=== PATIENT | female | born 1985 | race Hispanic/Latino ===

== ENCOUNTER 2017-05-14 23:50 | Emergency (ER) | payer SELFPAY ==
[2017-05-15] MEDS ORDERED: Ibuprofen 800 MG TAB ONE (00:20)
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
== END 2017-05-15 02:01 | disposition home or self-care (01) ==
LOC: ERS 23:50
DX: S00.83XA Contusion of other part of head, initial encounter (principal); S00.03XA Contusion of scalp, initial encounter; Y04.2XXA Assault by strike against or bumped into by another person, initial encounter
CPT/HCPCS: 70450; 70486

== ENCOUNTER 2017-08-03 22:01 | Emergency (ER) | payer SELFPAY ==
[~2017-08-03 22:01] MED LIST: ISOVUE-370 76%-LOCM 1 ML ONE
[2017-08-03 22:25] LABS: Pregnancy Test - Urine (BHCG) Negative (Negative); Pregu Control Background? CLEAR/WHITE (CLR/WHITE); Pregu Control Bar Appear? YES (CONTROL BAR)
[2017-08-03 22:26] LABS: Bilirubin Negative (Negative); Blood, Urine Small (Negative); Clarity CLEAR (Clear); Glucose, Urine (Dipstick) Negative (Negative); Leukocyte Negative (Negative); Nitrite Negative (Negative); Protein, Urine (Dipstick) Negative (Neg-Trace); Specific Gravity 1.026 (1.002-1.036); Specific Gravity, Urine 1.026 (1.002-1.036); Urobilinogen 0.2 mg/dL (0.2-1.0)
[2017-08-03 22:27] LABS: Bacteria/HPF None Seen HPF (None Seen); Hyaline Casts/LPF 0-3 HYALINE CAST LPF (0-3 Hyaline); Pathc Cast-AUWi Flag 0.58 (0-2.49); RBC/HPF 0-3 HPF (0-3); Squamous Epithelial 0-3 HPF (0-3); WBC/HPF 0-3 HPF (0-3)
[2017-08-04] MEDS ORDERED: Ketorolac Tromethamine 30 MG/ML VIAL ONE (00:14)
[2017-08-04 00:17] LABS: #Basophils 0.1 thou/uL (0.0-0.2); #Eosinphils 0.2 thou/uL (0.0-0.7); #Lymphocytes 2.5 thou/uL (1.20-3.40); #Neutrophils 10.4 thou/uL (1.40-6.50); %Basophils 0.5 % (0.0-1.0); %Eosinophils 1.2 % (0.0-10.0); %Lymphocytes 17.4 % (21.0-51.0); %Monocytes 6.9 % (0.0-10.0); %Neutrophils 73.9 % (42.0-75.0); Hemoglobin 10.9 g/dL (12.0-16.0); Mean Corpuscular HGB CONC 31.1 g/dL (32.0-36.0); Mean Corpuscular Hemoglobin 22.1 pg (27.0-31.0); Mean Corpuscular Volume 71.2 fl (81.0-99.0); Mean Platelet Volume 8.6 fL (7.4-10.4); Platelet Count 399 thou/uL (130-400); RBC Distribution Width 18.1 % (11.5-14.5); Red Blood Cell (RBC) Count 4.94 mill/uL (4.20-5.40); White Blood Cell (WBC) Count 14.1 thou/uL (4.8-10.8)
[2017-08-04 00:23] LABS: ALT (SGPT) 14 U/L (8-55); AST (SGOT) 19 U/L (5-34); Albumin 4.6 g/dL (3.5-5.0); Alkaline Phosphatase 95 U/L (40-150); Anion Gap 12 mmol/L (10-20); BUN (Urea Nitrogen) 14 mg/dL (7.0-18.7); Bilirubin, Total 0.3 mg/dL (0.2-1.2); Calc. Creatinine Clearance 0 mL/min (70-130); Calcium 10.1 mg/dL (7.8-10.44); Carbon Dioxide 27 mmol/L (22-29); Chloride 103 mmol/L (98-107); Estimated GFR-MDRD Greater than 90; Glucose 97 mg/dL (70-105); Lipase 37 U/L (8-78); Potassium 3.8 mmol/L (3.5-5.1); Protein, Total 8.6 g/dL (6.0-8.3); Sodium 138 mmol/L (136-145)
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
--- NOTE | 2017-08-04 17:16 | CT ---
sPRELIMINARY REPORT/[facility]/EMERGENCY AFTER HOURS PROCEDURE: EXAM: CT Abdomen and Pelvis With Intravenous Contrast EXAM DATE/TIME: Exam ordered 08/03/2017 11:54 PM CLINICAL HISTORY: 31 years old, female; Pain; Abdominal pain; Localized; Right lower quadrant (rlq); Prior surgery; Pat ient HX: Pt complains of rlq pain and n/v; Surgical history of tubal ligation, uterine biopsy TECHNIQUE: Axial computed tomography images of the abdomen and pelvis with intravenous contrast. Coronal reformatted images were created and reviewed. COMPARISON: No relevant prior studies available. FINDINGS: Lower thorax: No acute findings. ABDOMEN: Liver: Unremarkable. No mass. Gallbladder and bile ducts: Cholelithiasis. No cholecystitis or biliary ductal dilatation. Pancreas: Unremarkable. No mass. No ductal dilation. Spleen: Unremarkable. No splenomegaly. Adrenals: Unremarkable. No mass. Kidneys and ureters: Unremarkable. No solid mass. No hydronephrosis. Stomach and bowel: Unremarkable. No obstruction. No mucosal thickening. Appendix: Normal appendix. PELVIS: Bladder: Unremarkable. No mass. Reproductive: 1.9 cm dominant follicle/cyst the left ovary. ABDOMEN and PELVIS: Intraperitoneal space: Unremarkable. No free air. No significant fluid collection. Bones/joints: No acute fracture. No dislocation. Soft tissues: Unremarkable. Vasculature: Unremarkable. No abdominal aortic aneurysm. Lymph nodes: Unremarkable. No enlarged lymph nodes. IMPRESSION: 1.9 cm dominant follicle/cyst the left ovary. Thank you for allowing us to participate in the care of your patient. Dictated and Authenticated by: Misha Yung MD 08/04/2017 12:39 AM Central Time ([place] & [place]) FINAL REPORT CT APPENDIX PROTOCOL: INDICATION: Right lower quadrant abdominal pain with a surgical history of uterine biopsy and tubal ligation. COMPARISON: Prior exam dated 05/20/15. FINDINGS: There are follicular cysts within both adnexa, and I Agree with the preliminary report provided. The dominant follicle is within the left ovary; however, there are soft tissue nodules seen along the Pf annenstiel incision of the lower anterior abdominal wall that has increased in prominence from the co mparison exams. The largest enhancing soft tissue nodule within the subcutaneous fat of the right lo wer quadrant measures 3 cm. There is an additional 2.1 cm nodule on image 71 of series 2. An additi onal is seen near the midline measuring 1.8 cm. No definite intraperitoneal soft tissue mass is iden tified. No free fluid is noted. There is fluid density within the colon. There are layered gallstones within the gallbladder. The liver, spleen, pancreas, and adrenal glands appear within normal limits. There is a small cyst within the medial aspect of the spleen, which is likely stable. Adrenal gland and kidneys appear within normal limits. IMPRESSION: 1. I disagree with the preliminary report provided. There is fluid density seen within the colon wh ich can be seen in diarrheal states. 2. With the patient's history of right lower quadrant abdominal pain and proliferation of soft tissu e nodules seen along the Pfanniensteil incisional site, displaced endometrial tissue with endometrios is cannot be entirely excluded. Alternatively, the solid enhancing nodules seen along the incision s ite can be related to exuberant scar such as keloids. Recommend correlation with the clinical exam a nd patient's history, MR of the pelvis with and without contrast may be helpful for improved characte rization. 3. Cholelithiasis. 4. Stable splenic cyst. 5. Prominent follicles bilaterally. POS: MARIANNA
== END 2017-08-04 02:45 | disposition home or self-care (01) ==
LOC: ERS 22:01
DX: N83.202 Unspecified ovarian cyst, left side (principal); Z79.899 Other long term (current) drug therapy
CPT/HCPCS: 74177; 76856; 80053; 81003; 81015; 81025; 83690; 85025; 96361; 96374; J1885

== ENCOUNTER 2018-11-25 14:10 | Emergency (ER) | payer SELFPAY ==
[2018-11-25 15:06] LABS: Bacteria/HPF 3+ HPF (None Seen); Bilirubin Negative (Negative); Blood, Urine Trace (Negative); Clarity Clear (Clear); Glucose, Urine (Dipstick) Normal (Negative); Leukocyte 75 Leu/uL (Negative); Nitrite Negative (Negative); Protein, Urine (Dipstick) Negative (Neg-Trace); Urobilinogen Normal mg/dL (Less than 2)
[2018-11-25 15:09] LABS: Pregnancy Test - Urine (BHCG) Negative (Negative); Pregu Control Background? CLEAR/WHITE (CLR/WHITE); Pregu Control Bar Appear? YES (CONTROL BAR); Specific Gravity 1.021 (1.002-1.036)
[2018-11-25] MEDS ORDERED: Ketorolac Tromethamine 60 MG/2 ML VIAL ONE (15:14)
[2018-11-25 15:22] LABS: Hemoglobin 8.3 g/dL (12.0-16.0); Mean Corpuscular HGB CONC 28.7 g/dL (32.0-36.0); Mean Corpuscular Hemoglobin 18.1 pg (27.0-31.0); Mean Corpuscular Volume 63.1 fL (78.0-98.0); Mean Platelet Volume 6.4 fL (7.4-10.4); Platelet Count 308 thou/uL (130-400); Red Blood Cell (RBC) Count 4.61 mill/uL (4.20-5.40); White Blood Cell (WBC) Count 9.4 thou/uL (4.8-10.8)
[2018-11-25 15:25] LABS: BHCG - Serum Negative (NEGATIVE); Pregs Control Background? CLEAR/WHITE (CLR/WHITE); Pregs Control Bar Appear? YES (CONTROL BAR)
[2018-11-25 15:36] LABS: Anion Gap 12 mmol/L (10-20); BUN (Urea Nitrogen) 11 mg/dL (7.0-18.7); Calc. Creatinine Clearance 0 mL/min (70-130); Calcium 9.5 mg/dL (7.8-10.44); Carbon Dioxide 25 mmol/L (22-29); Chloride 103 mmol/L (98-107); Estimated GFR-MDRD 90; Glucose 83 mg/dL (70-105); Potassium 3.8 mmol/L (3.5-5.1); Sodium 136 mmol/L (136-145)
[2018-11-25 15:37] LABS: ALT (SGPT) 11 U/L (8-55); AST (SGOT) 14 U/L (5-34); Albumin 4.4 g/dL (3.5-5.0); Alkaline Phosphatase 82 U/L (40-150); Bilirubin, Total 0.4 mg/dL (0.2-1.2); Globulin 3.7 g/dL (2.4-3.5); Lipase 22 U/L (8-78); Protein, Total 8.1 g/dL (6.0-8.3)
[2018-11-25 15:43] LABS: #Basophils 0.1 thou/uL (0.0-0.2); #Eosinphils 0.1 thou/uL (0.0-0.7); #Lymphocytes 2.2 thou/uL (1.20-3.40); #Monocytes 0.7 thou/uL (0.11-0.59); #Neutrophils 6.4 thou/uL (1.40-6.50); %Basophils 0.5 % (0.0-1.0); %Eosinophils 0.7 % (0.0-10.0); %Lymphocytes 23.6 % (21.0-51.0); %Monocytes 7.4 % (0.0-10.0); %Neutrophils 67.8 % (42.0-75.0); Anisocytosis SLIGHT = 6-15 cells (100X) (0-5/hpf); Elliptocytes SLIGHT = 2-5 cells (100X) (0-1/hpf); Hypochromia SLIGHT = 6-15 cells (100X) (0-5/hpf); MDiff Complete? YES; Microcytosis SLIGHT = 6-15 cells (100X) (0-5/hpf); Platelet Morphology Comment Appears Adequate
--- NOTE | 2018-11-25 15:44 | CT ---
CT ABDOMEN AND PELVIS WITHOUT CONTRAST STONE PROTOCOL: Date: 11/25/18 HISTORY: Abdominal pain. COMPARISON: CT abdomen and pelvis dated 08/03/17. FINDINGS: Lung bases are clear. No pericardial effusion. There is a punctate 1 x 2 mm calculus inferior left renal collecting system. No other calculi are ida reciated within the renal collecting systems. No hydroureteronephrosis. An appendix is visualized and is normal. There is cholelithiasis. Noncontrast evaluation of the abdom en demonstrates a mildly enlarged spleen measuring 13 cm in length. Liver is unremarkable, as is the pancreas. Aortoiliac contour is nonaneurysmal. The soft tissue nodules along the Caesarean section scar have not grown. IMPRESSION: 1. Nonobstructive punctate 1 x 2 mm calculus inferior left renal collecting system. 2. 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 This can be a source of patient's pain, especially if cyclical. 3. Cholelithiasis without cholecystitis. 4. Normal appendix. POS: HOME
== END 2018-11-25 16:00 | disposition home or self-care (01) ==
LOC: ERS 14:10
DX: N30.00 Acute cystitis without hematuria (principal); N80.6 Endometriosis in cutaneous scar
CPT/HCPCS: 36415; 74176; 80053; 81003; 81015; 81025; 83690; 84703; 85025; 85060; 87077; 87086; 87186; 96372; J1885

== ENCOUNTER 2021-11-10 00:11 | Emergency (ER) | payer OTHER | END 2021-11-10 03:55 | disposition home or self-care (01) | LOC: ERS 00:11 | DX: S43.402A Unspecified sprain of left shoulder joint, initial encounter (principal); W19.XXXA Unspecified fall, initial encounter ==